=== PATIENT | male | born 1955 | race Caucasian/White ===

== ENCOUNTER → 2016-10-31 | Outpatient (CLI) | payer BC ==
[~2016-10-31] VITALS: Ht 177.8 cm; Wt 120.4 kg
[~2016-10-31] MED LIST: ALTACE10 M1 PO; AMARYL1 MG PO; AMLODIPINE BESYL5 MG PO; AMOXICILLIN/POTASSIU PO; ASPIRIN325; ASPIRIN325 PO; AUGMENTIN 875875 M1 PO; BENADRYL ALLERG25 MG PO; BYDUREON2 MG SQ; CEFTIN 250 MG250 MG PO; CLEOCIN HCL150 MG PO; COMBIVENT INH; CRESTOR10 MG PO; CRESTOR5 MG PO; DEEP SEA NASAL44 M1 NS; DUONEB 2.5-0.5 M3 ML IH; FAMOTIDINE20 MG PO; FARXIGA5 MG PO; FISH OIL + D31 EACH; FISH OIL 1,0001 EAC5 PO; FUROSEMIDE 40 M40 MG PO; GLIPIZIDE5 MG PO; GLUCOPHAGE1000 MG PO; GLUCOPHAGE500 MG PO; HYDROCODON-ACE1 EAC1 PO; HYDROCODON-ACE1 EAC5 PO; HYDROCODON-ACE1 EAC7 PO; HYDROCODON-ACE1 EAC8 PO; HYDROCODONE-AP1 EAC6 PO; IBUPROFEN 200200 M1 PO; JANUMET 50-1,01 EACH PO; JANUMET XR 1001 EACH PO; K-DUR 20 MEQ T20 MEQ PO; KLOR-CON 1010 MEQ PO; LASIX 20 MG TAB20 MG PO; LOPRESSOR 50 MG50 M1 PO; LOVAZA1000 MG PO; NORCO 10-325 T1 EACH PO; NORCO 5-325 TA1 EACH PO; NOVOLIN N100 UNIT/3 SQ; PLAVIX 75 MG TA75 MG; PLAVIX 75 MG TA75 MG PO; PREDNISONE 10 M10 M1 PO; PREDNISONE 20 M20 M1 PO; PREDNISONE 20 M20 MG PO; PROAIR HFA8.5 GM INH; SYMBACORT INH; SYMBICORT160 MCG/4. INH; TRAMADOL 50 MG50 MG PO; VICTOZA0.6 MG/0.1 SQ; XIGDUO XR 5 MG1 EAC1 PO
--- NOTE | ~2016-10-31 | HPC ---
[facility] [place] [place] [address] PAIN MANAGEMENT CONSULTATION Name: KEON COLIN Room #: REG [facility].#: [id number] Admission: 10/31/16 Attend Phys: Jayson Rubio MD Discharge: Date of : 57 Report #: [id number] THIS REPORT FOR: //name// CC: Ed Rubio DATE OF SERVICE: 10/31/2016 Followup visit for low back pain with radiculopathy. The patient returns to the pain clinic today and would like another epidural injection. It has been almost 7 months since his last injection. He said he would like to have gotten in earlier, but just did not. He has done very well with previous injections and there have been no complications. I also provided him with a small amount of hydrocodone 10/325. I gave him 90 tablets with 2 additional refills at his last visit in March and they were enough to carry him through today's appointment. Medications were reviewed and reconciled. He is taking Xigduo XR, Lasix, potassium, glipizide, rosuvastatin and aspirin. Hydrocodone has been out for some time. He would like to have a renewal of that medication since it helps so much when he is unable to get in to get an injection. ALLERGIES: MORPHINE. PHYSICAL EXAMINATION: GENERAL: This is a very pleasant, affable 61-year-old gentleman. PSYCHIATRIC: No evidence of depression or anxiety. VITAL SIGNS: His BMI is 38.1, his blood pressure 110/75 and heart rate 99. MUSCULOSKELETAL: He moves easily from sitting to standing position. He has marked antalgic features. Range of motion of the spine is limited in flexion and extension. Bilateral straight leg raising is noted, worse on the right, reproducing radicular symptoms. IMPRESSION: 1. Low back pain with radiculopathy. 2. Management of high-risk medication. This radiculopathy is secondary to MRI evidence of stenosis at L4-L5. RECOMMENDATIONS: 1. Support for his efforts to stay off of tobacco. He is now 9 months off and is doing well. [facility] [address] [place] [address] PAIN MANAGEMENT CONSULTATION Name: CRISTI,KEON W Room #: REG [facility].#: [id number] Admission: 10/31/16 Attend Phys: Jayson Rubio MD Discharge: Date of : 57 Report #: [id number] 2. Continue with regular activities and exercise. He continues to work at [employer] in the [place] department. 3. Epidural steroid injection under fluoroscopic guidance. 4. Renewal of medications under terms of our opioid agreement. PROCEDURE: The patient was taken to the fluoroscopic suite and placed prone. Skin prepped with ChloraPrep. Skin anesthetized over L4-L5 to the right of midline. A 20-gauge Tuohy epidural needle advanced in the epidural space with loss of resistance. No blood or CSF aspirated. A 1 mL of Omnipaque injected. Good spread of dye observed along the right side lateral recess, followed by 3 mL of 0.5% lidocaine mixed with 80 mg of triamcinolone. He tolerated the procedure well, was observed for 45 minutes and discharged. Follow up as needed. Dated prescriptions were provided. By: [id number] Jayson Rubio MD /nt
[2016-10-31 10:30] VITALS: BP 110/75
== END | disposition home or self-care (01) ==
LOC: PAIN 08-22 14:53
DX: M48.06 Spinal stenosis, lumbar region (principal); J44.9 Chronic obstructive pulmonary disease, unspecified; E11.9 Type 2 diabetes mellitus without complications; G89.29 Other chronic pain; Z87.891 Personal history of nicotine dependence

== ENCOUNTER → 2017-03-13 | Outpatient (CLI) | payer BC ==
[~2017-03-13] VITALS: Ht 177.8 cm; Wt 118.6 kg
--- NOTE | ~2017-03-13 | HPC ---
[facility] [place] [address] [place] [address] PAIN MANAGEMENT CONSULTATION Name: KEON COLIN Room #: REG [facility] Jan#: [id number] Admission: 03/13/17 Attend Phys: Jayson Rubio MD Discharge: Date of : 57 Report #: [id number] THIS REPORT FOR: //name// CC: Ed Rubio DATE OF SERVICE: 03/13/2017 Followup visit for low back pain with radiculopathy. The patient returns to pain clinic today for repeat injection. He has had epidural injections intermittently providing good relief of his radicular pain over the course of many years. He has never had more than 3-4 injections in a single year. He is a good responder based upon his meaningful improvement that lasts anywhere from 4-6 months. It has been 4 months since his last injection. Prior to that it was over 6 months. Pain is once again in his low back, radiates in a radicular fashion down into the left leg. He has also some pain on the right. Pain is consistent with his MRI findings which show at L4-L5 a moderate spinal stenosis produced by AP narrowing. We have also seen more severe changes at L3-L4. Injections at L4-L5 have shown good spread into both dermatomal distributions and we will continue to inject him at the same location. His health has otherwise been good with no significant changes since his last visit. 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 When the pain is bad at the end of the day he tends to go home, rest and he has used hydrocodone to help get him through these episodes. He uses his medication appropriately under terms of an opioid agreement and I am happy to provide it for him. His dose is moderate, maximum he has used in a single day is 3 tablets, which would equate to 30 mg of hydrocodone or 30 morphine milligram equivalents. We have reviewed the opioid crisis in the [place] and the importance of safeguarding all medications. He has no significant side effects. PHYSICAL EXAMINATION: GENERAL: This is a very pleasant, outgoing porfirio, 61 years old now. He moves easily from sitting to standing position, but walks with an antalgic gait. VITAL SIGNS: Blood pressure 110/85, heart rate is 104, respirations 20, oxygen saturation is 96%. MUSCULOSKELETAL: He has tenderness across his low back. He has bilateral positive straight leg raising, worse on the left than the right. Pain tends to follow more of an L4-L5, L5-S1 distribution. IMPRESSION: Spinal stenosis, multilevel with radiculopathy, worse on the left than the right. Bilateral findings were noted. [address] [address] PAIN MANAGEMENT CONSULTATION Name: KEON COLIN Room #: REG [facility] Jan#: [id number] Admission: 03/13/17 Attend Phys: Jayson Rubio MD Discharge: Date of : 57 Report #: [id number] RECOMMENDATIONS: Epidural steroid injection under fluoroscopic guidance. DESCRIPTION OF PROCEDURE: The patient was taken to the fluoroscopic suite, placed prone, skin prepped with ChloraPrep. Skin anesthetized over the L4-L5 interspace. A 20-gauge Tuohy epidural needle advanced first attempt to the epidural space, left of midline. No blood or CSF was aspirated. 1 mL of Omnipaque injected. Good spread of dye observed in the epidural space followed by 3 mL of 0.5% lidocaine mixed with 80 mg of triamcinolone. He tolerated the procedure well and was observed for 45 minutes and discharged. Followup visit as needed. By: 1141 Jayson Rubio MD /nt
[2017-03-13 10:44] VITALS: BP 110/85
== END | disposition home or self-care (01) ==
LOC: PAIN 06:58
DX: M48.06 Spinal stenosis, lumbar region (principal); M54.16 Radiculopathy, lumbar region; G89.29 Other chronic pain; E11.9 Type 2 diabetes mellitus without complications; J44.9 Chronic obstructive pulmonary disease, unspecified; Z87.891 Personal history of nicotine dependence; Z88.8 Allergy status to other drugs, medicaments and biological substances; Z98.890 Other specified postprocedural states; Z79.82 Long term (current) use of aspirin; Z79.899 Other long term (current) drug therapy

== ENCOUNTER → 2017-08-14 | Outpatient (CLI) | payer BC ==
[~2017-08-14] VITALS: Ht 177.8 cm; Wt 122.0 kg
[~2017-08-14] MED LIST changes: +BREO ELLIPTA 21 EACH INH; +FARXIGA10 MG PO
--- NOTE | ~2017-08-14 | HPC ---
[facility] [place] [address] PAIN MANAGEMENT CONSULTATION Name: KEON COLIN [id number] Admission: 08/14/17 Attend Phys: Jayson Rubio MD Discharge: Date of : 57 Report #: [id number] THIS REPORT FOR: //name// CC: Ed Rubio DATE OF SERVICE: 08/14/2017 Followup visit for lumbar radiculopathy. This is a repeat visit for the patient who comes in about twice a year for lumbar epidural injection. He is a hard working porfirio. 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 Even in the winter, he has lots of things that he is doing manually. This aggravates his back and he has chronic pain which is radiating into his legs. He has 2 particular levels of involvement, particularly L3-L4, L4-L5 and I have been giving him injections at L4-L5 with good response. He is here today with a pain score of 9/10 that has been sustained over the last month or so and he is hopeful for another epidural injection. MEDICATIONS: Metformin, fluticasone, hydrocodone which he takes infrequently, but when the pain is severe, will kick up to about 2-3 tablets a day to help him get through his work, Lasix, potassium, glipizide, Crestor and aspirin. He is on an opioid agreement. He understands the importance of safeguarding all medications. He understands that there is an opioid crisis in [place] and he knows that we are working from a CDC guideline. His morphine milligram equivalency dose at maximum is 30 MME per day. On many days after his injections, he does not use any hydrocodone whatsoever. His functional assessment tool shows 60/70 which is pretty high. We hope that after his injection that those numbers will drop. He usually gets about 95% of pain relief for up to 3 months that is an excellent response. It entails off after that. PHYSICAL EXAMINATION: He is obese with a blood pressure of 130/87, heart rate 107 and BMI of 38.7. He has his right wrist wrapped today due to carpal tunnel. He is able to move from sitting to standing position, walks without antalgic features. He has pain across his low back, limited range of motion of the lumbar spine in flexion, extension and rotation. Positive straight leg raising bilaterally, worse on the left. IMPRESSION: Chronic low back pain secondary to spinal stenosis at L3-L4, L4-L5. PROCEDURE: Epidural steroid injection L4-L5 under fluoroscopic guidance. He was taken to fluoroscopic suite for treatment, placed prone, [place] [address] PAIN MANAGEMENT CONSULTATION Name: KEON COLIN Room #: REG [facility] Montoya#: [id number] Admission: 08/14/17 Attend Phys: Jayson Rubio MD Discharge: Date of : 57 Report #: [id number] with ChloraPrep. Skin anesthetized over the L4-L5 and a 20-gauge Tuohy epidural needle advanced on the first attempt in the epidural space with loss of resistance technique. There was no blood or CSF aspirated. 1 mL of Omnipaque injected. Good dye spread was seen. It was then followed by 3 mL of 1% lidocaine mixed with 80 mg of triamcinolone. He tolerated the procedure well and was observed for 45 minutes and discharged. Follow up as needed. <ELECTRONICALLY SIGNED> By: Jayson Rubio MD 09/17/17 [id number] Jayson Rubio MD /nt
[2017-08-14 12:52] VITALS: BP 130/87
== END | disposition home or self-care (01) ==
LOC: PAIN 06:55
DX: M48.061 Spinal stenosis, lumbar region without neurogenic claudication (principal); M54.16 Radiculopathy, lumbar region; G89.29 Other chronic pain; E11.9 Type 2 diabetes mellitus without complications; J44.9 Chronic obstructive pulmonary disease, unspecified; E66.09 Other obesity due to excess calories; Z68.38 Body mass index [BMI] 38.0-38.9, adult; Z79.891 Long term (current) use of opiate analgesic; Z79.899 Other long term (current) drug therapy; Z79.82 Long term (current) use of aspirin; Z87.891 Personal history of nicotine dependence; Z98.890 Other specified postprocedural states; Z87.09 Personal history of other diseases of the respiratory system; Z88.6 Allergy status to analgesic agent

== ENCOUNTER → 2018-03-09 | Outpatient (CLI) | payer BC ==
[~2018-03-09] VITALS: Ht 177.8 cm; Wt 118.1 kg
--- NOTE | ~2018-03-09 | HPC ---
[facility] [place] [address] PAIN MANAGEMENT CONSULTATION Name: KEON COLIN [facility] [id number] Admission: 03/09/18 Attend Phys: Jayson Rubio MD Discharge: Date of : 57 Report #: [id number] THIS REPORT FOR: //name// CC: Ed Rubio DATE OF SERVICE: 03/09/2018 Followup visit for chronic low back pain with radiculopathy, recurrent. The patient is here to the pain clinic today for an epidural injection. He has been a long-standing patient of our clinic and an excellent responder to epidural injections, meeting criteria for meaningful improvement with a good long duration of response. His last epidural injection was in July. I also provided him with medication under the CDC guideline. He uses a low dose of hydrocodone. He is prescribed hydrocodone 10/325 and uses no more than one to two tablets per day. I have been giving him prescriptions for 90 tablets, but we will reduce that to 60 today. His calculated MME by his described use today is about 10-20 depending on his pain. Pain is returning now. It is in his back, radiates into both legs. It follows a dermatomal distribution of L3-L4. He has been receiving injections without issue. He has spinal stenosis at L3-L4 and L4-L5. I reviewed the CDC guidelines with him today and his opioid agreement. He is at low risk for addiction and has completed an opioid agreement. PHYSICAL EXAMINATION: GENERAL: This is a pleasant, outgoing gentleman. VITAL SIGNS: He is 5 feet 10 inches, 260 pounds. BMI is 37.4. His blood pressure is 111/69 and heart rate 86. MUSCULOSKELETAL: He is able to move independently from sit to stand, does not use a cane and is not a fall risk. He has some antalgic features to his gait. He has positive straight leg raising noted bilaterally. Pain, as before, is more severe on the left than the right. IMPRESSION: Chronic low back pain secondary to spinal stenosis, L3-L4 and L4-L5. RECOMMENDATIONS: Epidural steroid injection under fluoroscopic guidance. PROCEDURE: He was taken to fluoroscopic suite and placed prone. Skin prepped with ChloraPrep. Skin anesthetized today under L3-L4. A 20-gauge Tuohy epidural needle advanced first attempt in the epidural space with loss of resistance. There was no blood or CSF aspirated. One mL of Omnipaque injected. [address] [address] PAIN MANAGEMENT CONSULTATION Name: KEON COLIN [facility] #: [facility] [id number] Admission: 03/09/18 Attend Phys: Jayson Rubio MD Discharge: Date of : 57 Report #: [id number] Good spread of dye observed in the epidural space, followed by 3 mL of 0.5% lidocaine mixed with 80 mg of triamcinolone. He tolerated the procedure well, was observed for 45 minutes and discharged. Follow up as needed. By: [id number] Jayson Rubio MD /nt
[2018-03-09 10:33] VITALS: BP 111/69
== END | disposition home or self-care (01) ==
LOC: PAIN 06:58
DX: M54.16 Radiculopathy, lumbar region (principal); M48.061 Spinal stenosis, lumbar region without neurogenic claudication; G89.29 Other chronic pain; E11.9 Type 2 diabetes mellitus without complications; J44.9 Chronic obstructive pulmonary disease, unspecified; Z88.8 Allergy status to other drugs, medicaments and biological substances; Z79.891 Long term (current) use of opiate analgesic; Z87.891 Personal history of nicotine dependence; Z79.82 Long term (current) use of aspirin

== ENCOUNTER → 2018-08-13 | Outpatient (CLI) | payer BC ==
[~2018-08-13] VITALS: Ht 177.8 cm; Wt 121.5 kg
--- NOTE | ~2018-08-13 | HPC ---
[facility] [address] [place] [address] PAIN MANAGEMENT CONSULTATION Name: KEON COLIN [facility] #: [facility] [id number] Admission: 08/13/18 Attend Phys: Jayson Rubio MD Discharge: Date of : 57 Report #: [id number] THIS REPORT FOR: //name// CC: Ed Rubio DATE OF SERVICE: 08/13/2018 Followup visit for chronic low back pain with radiculopathy secondary to spinal stenosis. Bilateral lower extremity discomfort with broad dermatomal distribution and management of high risk medication. The patient has been a longstanding patient of the clinic dating back nearly 10 years. He has been receiving intermittent epidural injections no more than 2-3 injections per year with excellent relief. The injections tend to provide dramatic improvement, and the duration of responses vary favorable ranging 2-4 months before the pain begins to return in earnest. He is here today for another injection. I will also renew hydrocodone for him, which he uses cautiously and only at that time when the block seems to have worn off and his pain begins to return. He has had no unexpected calls or prescription requests, and his [employer] prescription drug monitoring shows that his medications prescribed only by her clinic. He is on an opioid agreement, reviewed the terms of that agreement, the importance of safeguarding all medications for chronic pain. PHYSICAL EXAMINATION: GENERAL: He is a pleasant gentleman, outgoing, easy to speak with. VITAL SIGNS: He is 5 feet 10 inches, 267 pounds, slightly up with a BMI of 38.4. Blood pressure 126/94, heart rate is 90, respirations 20. His pain intensity is 9/10. MUSCULOSKELETAL: He has pain with antalgic gait. He has bilateral straight leg raising discomfort. He has tenderness across the lumbosacral spine. Most recent MRI is dated 2008. There is likely significant progress, particularly given that the challenges that we found today entering the L4-L5 interspace. At that time, he had spinal stenosis at a level of 7.5 in the AP diameter. He had significant narrowing also with 6.2 mm in narrowing at the L3-L4. I have consistently injected him at the 4-5 level and that is where we will proceed today. IMPRESSION: Low back pain with radiculopathy secondary to multilevel spinal stenosis. PROCEDURE: Epidural steroid injection under fluoroscopic guidance. He was taken to fluoroscopic suite, placed prone, skin prepped with ChloraPrep. [address] [address] PAIN MANAGEMENT CONSULTATION Name: KEON COLIN Room #: REG Juan[facility] Montoya#: [id number] Admission: 08/13/18 Attend Phys: Jayson Rubio MD Discharge: Date of : 57 Report #: [id number] Skin anesthetized at the L4-L5 interspace. I placed a needle into the epidural space after attempts at both the right and left paramedian approach. I eventually was able to find good loss of resistance at L4-L5. There was initially some blood aspirated. The needle was slightly repositioned and rotated. I injected some saline to the needle, and there was no longer blood aspirated. I then injected Omnipaque, and spread of dye was seen nicely through the epidural space extending cephalad both in the anterior and posterior epidural space, was followed by 3 mL of 0.5% lidocaine mixed with 80 mg of triamcinolone. He tolerated the procedure well. Pain score reduced from 9/10 to 0/10 at recovery room at discharge. Medications renewed under terms of our opioid agreement, hydrocodone 10/325, #60 tablets with a refill prescription for 4 and 8 weeks. I will see him back when necessary. We do not perform series of injections in this setting and certainly will continue to use fewest number of injections possible to provide substantial relief. I did have a bit of trouble identifying his epidural space today due to osteophytes seen in placement of the needle. If finding diminishing returns on his injections, I would certainly consider repeating his MRI in the future since it has been nearly 10 years since his last x-ray. By: 1157 1244 Jayson Rubio MD /nt
[2018-08-13 08:52] VITALS: BP 126/94
--- NOTE | 2018-08-13 09:04 | NUR ---
Pain Clinic Assessment: 1. History of Osteoarthritis: Not Applicable History of Rheumatoid Arthritis: Not Applicable 2. Height: 5 ft. 10 in. 177.8 cm. Weight: 267.8 lb. oz. 121.474 kg. Patient's BMI: 38.4 3. Vital Signs: BP: 126/94 Pulse: 90 Resp: 20 Temp: 02 Sat: 96 ECG Mon: 4. Pain Intensity: 9 5. Fall Risk: Dizziness: N Needs help standing or walking: N Fallen in the last 3 months: Y Fall risk comments: 6. Patient on Blood Thinner: None 7. History of Hypertension: Y 8. Opioid Therapy greater than 6 weeks: Y Opiate Contract Signed: 03/27/16 9. Risk Assessment Tool Provided: LOW RISK 10. Functional Assessment Tool: 60 11. Recreational Drug Use: Never Drug Type: Tobacco Use: Former Smoker Tobacco Type: Amount or Packs/day: How Many Years: Alcohol Use: Yes Frequency: Monthly Quant: 3X MONTH
== END | disposition home or self-care (01) ==
LOC: PAIN 07:06
DX: M48.061 Spinal stenosis, lumbar region without neurogenic claudication (principal); M54.16 Radiculopathy, lumbar region; G89.29 Other chronic pain; J44.9 Chronic obstructive pulmonary disease, unspecified; Z79.899 Other long term (current) drug therapy; Z79.891 Long term (current) use of opiate analgesic; Z87.891 Personal history of nicotine dependence; Z98.890 Other specified postprocedural states; Z79.82 Long term (current) use of aspirin

== ENCOUNTER → 2018-12-21 | Outpatient (CLI) | payer BC, OTHER ==
[~2018-12-21] VITALS: Ht 177.8 cm; Wt 120.4 kg
--- NOTE | ~2018-12-21 | HPC ---
[facility] [place] [address] PAIN MANAGEMENT CONSULTATION Name: KEON COLIN Room #: REG [facility].#: [id number] Admission: 12/21/18 ������������������ Attend Phys: Jayson Rubio MD Discharge: ������������������ Date of : 57 Report #: [id number] THIS REPORT FOR: //name// CC: SHAWN Rubio DATE OF SERVICE: 12/21/2018 Followup visit for chronic low back pain with radiculopathy and spinal stenosis. The patient was last seen in July for an epidural injection and is here today hoping for same. Record will reflect that he has received 2-3 epidural injections per year over the course of the last many years. He became a patient of mine nearly 10 years ago. This has done a nice job of keeping away from the surgeons and out of the operating room and he has been able to manage well with good pain relief lasting months at a time. Pain is now returning. I have also provided with medication under terms of written opioid agreement. He uses hydrocodone 10/325 sparingly oftentimes reducing and almost completely following his injection until the pain begins to return. He does not exceed 2 tablets a day for a maximum MME of 20. He carefully safeguards his medications. He is grateful for the medication when needed prior to receiving subsequent injections. I have agreed to renew his medications for him today. Checked his prescription drug monitoring program, there are no unexpected entries. PHYSICAL EXAMINATION: GENERAL: He is pleasant, alert gentleman. VITAL SIGNS: Blood pressure 104/71, heart rate is 101. MUSCULOSKELETAL: Moves from sitting to standing position. His gait is antalgic. He has limited range of motion of the lumbar spine. Tenderness across the low back is present in the lumbosacral segment. Positive straight leg raising present bilaterally, worse today a little bit on the left. Sensation is slightly diminished with complaints of tingling and numbness in the lower extremities. Deep tendon reflexes are absent bilaterally. IMPRESSION: Low back pain with radiculopathy secondary to multilevel spinal stenosis. RECOMMENDATION: Epidural steroid injection under fluoroscopic guidance. PROCEDURE: He was taken to fluoroscopic suite, placed prone, skin prepped with ChloraPrep. Skin anesthetized over the L4-L5 interspace. A 20-gauge Tuohy epidural needle advanced first attempt in the midline. No blood or CSF was aspirated. Omnipaque 1 mL was injected. Good spread of dye observed in the epidural space followed by 3 mL of 0.5% lidocaine mixed with 80 mg of [address] [address] PAIN MANAGEMENT CONSULTATION Name: KEON COLIN Room #: [facility]#: [id number] Admission: 12/21/18 ������������������ Attend Phys: Jayson Rubio MD Discharge: ������������������ Date of : 57 Report #: [id number] triamcinolone. He tolerated the procedure well and was observed for 45 minutes and discharged. Followup visit planned in the pain clinic on an as needed basis in the future. ��������������������������������������������� ���������������������������������������� By: ��������������������������������������������� [id number] aJyson Rubio MD /dharmesh
[2018-12-21 11:09] VITALS: BP 104/71
--- NOTE | 2018-12-21 11:33 | NUR ---
Pain Clinic Assessment: 1. History of Osteoarthritis: Not Applicable History of Rheumatoid Arthritis: Not Applicable 2. Height: 5 ft. 10 in. 177.8 cm. Weight: 265.4 lb. oz. 120.385 kg. Patient's BMI: 38.1 3. Vital Signs: BP: 104/71 Pulse: 101 Resp: 16 Temp: 02 Sat: 95 ECG Mon: 4. Pain Intensity: 8 5. Fall Risk: Dizziness: N Needs help standing or walking: N Fallen in the last 3 months: Y Fall risk comments: 6. Patient on Blood Thinner: None 7. History of Hypertension: Y 8. Opioid Therapy greater than 6 weeks: Y Opiate Contract Signed: 03/27/16 9. Risk Assessment Tool Provided: LOW RISK 10. Functional Assessment Tool: 60 11. Recreational Drug Use: Never Drug Type: Tobacco Use: Former Smoker Tobacco Type: Amount or Packs/day: How Many Years: Alcohol Use: Yes Frequency: Monthly Quant: 1-2
== END | disposition home or self-care (01) ==
LOC: PAIN 06:45
DX: M54.16 Radiculopathy, lumbar region (principal); M48.061 Spinal stenosis, lumbar region without neurogenic claudication; J44.9 Chronic obstructive pulmonary disease, unspecified; Z87.891 Personal history of nicotine dependence; Z88.8 Allergy status to other drugs, medicaments and biological substances; Z79.82 Long term (current) use of aspirin; Z79.899 Other long term (current) drug therapy

== ENCOUNTER 2019-01-12 10:31 | Inpatient (IN) | payer BC, OTHER ==
[~2019-01-12] VITALS: Ht 177.8 cm; Wt 125.1 kg
[2019-01-12 10:32] VITALS: BP 137/97
[2019-01-12 10:53] LABS: ABSOLUTE NEUTROPHILS 5.1 thou/uL (1.4-8.2); BASOPHILS 2.1 % (0.0-2.0); HEMATOCRIT 51.2 % (42.0-52.0); HEMOGLOBIN 17.1 gm/dL (14.0-18.0); MCH 31.8 pg (26.0-34.0); MCHC 33.4 g/dL (28.0-37.0); MCV 95.4 fL (80.0-100.0); MONOCYTES 9.2 % (1.0-8.0); PLATELET COUNT 180 thou/uL (150-400); POLYS 62.7 % (36.0-66.0); RBC 5.37 mil/uL (4.50-6.00); WBC 8.1 thou/uL (4.0-11.0)
[2019-01-12 11:03] LABS: ANION GAP 8 mmol/L (7-16); BUN 16 mg/dL (7-18); CALCIUM 9.1 mg/dL (8.5-10.1); CHLORIDE 101 mmol/L (98-107); CO2 31 mmol/L (21-32); CREATININE 0.9 mg/dL (0.7-1.3); GLUCOSE 254 mg/dL (74-106); POTASSIUM 3.9 mmol/L (3.5-5.1); SODIUM 140 mmol/L (136-145)
[2019-01-12 11:13] LABS: MAGNESIUM 2.3 mg/dL (1.8-2.4); TROPONIN-I <0.06 ng/mL (<0.06)
--- NOTE | 2019-01-12 12:15 | NUR ---
pt. to be admitted per dr. fritz
[2019-01-12 13:15] VITALS: BP 126/80
[2019-01-12 13:56] LABS: CHOLESTEROL 148 mg/dL (<200); HDL CHOLESTEROL 32 mg/dL (>40); LDL CHOLESTEROL 63 mg/dL (<100); TC:HDL 4.6 Ratio (Not establshd); TRIGLYCERIDE 265 mg/dL (<150); VLDL 53 mg/dL (<40)
--- NOTE | 2019-01-12 15:23 | 2DMMODE ---
[facility] [place] [address] 2 D/M-MODE ECHOCARDIOGRAM Name: KEON COLIN Bruce Room #: 350-P [facility] IN ..#: [id number] ������������� Admission: 01/12/19 ������������� Attend Phys: Jovan Somers MD Discharge: ��� ������������� ��� Date of : 57 Date of Service: 01/12/19 1523 �� Report #: [id number] �������� ��������������������������������������������[id number] THIS REPORT FOR: //name// APPROVED REPORT Study performed: 01/12/2019 13:33:04 EXAM: Comprehensive 2D, Doppler, and color-flow Echocardiogram Patient Location: ER Status: routine BSA: 2.35 HR: 85 bpm BP: 145/101 mmHg Rhythm: NSR Other Information Study Quality: Adequate Indications COPD Diabetes CAD Syncope Hypertension/HDD 2D Dimensions IVSd: 10.19 (7-11mm) LVOT Diam: 23.09 (18-24mm) LVDd: 46.46 mm PWd: 10.28 (7-11mm) Ascending Ao: 36.86 (22-36mm) LVDs: 33.42 (25-40mm) Aortic Root: 36.47 mm Volumes Left Atrial Volume (Systole) Single Plane 4CH: 54.66 mL Single Plane 2CH: 47.69 mL LA ESV Index: 25.00 mL/m2 Aortic Valve AoV Peak Jossue.: 1.48 m/s AO Peak Gr.: 8.77 mmHg LVOT Max P.98 mmHg LVOT Max V: 1.12 m/s OSKAR Vmax: 3.15 cm2 Mitral Valve [facility] [address] [place] [address] 2 D/M-MODE ECHOCARDIOGRAM Name: KEON COLIN Bruce Room #: 350-P [facility] IN [place]#: [id number] ������������� Admission: 01/12/19 ������������� Attend Phys: Jovan Somers MD Discharge: ��� ������������� ��� Date of : 57 Date of Service: 01/12/19 1523 �� Report #: [id number] �������� ��������������������������������������������[id number] E/A Ratio: 1.1 MV Decel. Time: 220.52 ms MV E Max Jossue.: 0.81 m/s MV A Jossue.: 0.77 m/s MV PHT: 63.95 ms IVRT: 64.59 ms Pulmonary Valve PV Peak Jossue.: 1.07 m/s PV Peak Gr.: 4.63 mmHg Pulmonary Vein P Vein S: 0.41 m/s P Vein A: 0.23 m/s P Vein D: 0.33 m/s P Vein A Dur.: 87.7 msec P Vein S/D Ratio: 1.24 Tricuspid Valve TR Peak Jossue.: 2.37 m/s TR Peak Gr.: 22.47 mmHg PA Pressure: 22.00 mmHg Left Ventricle The left ventricle is normal size. There is normal left ventricular wall thickness. The left ventricular systolic function is normal. The left ventricular ejection fraction is within the normal range. LVEF is 55-60%. Right Ventricle The right ventricle is normal size. The right ventricular systolic function is normal. Atria The left atrium size is normal. The right atrium size is normal. Aortic Valve The aortic valve is normal in structure. No aortic regurgitation is present. There is no aortic valvular stenosis. Mitral Valve The mitral valve is normal in structure. There is no mitral valve regurgitation noted. No evidence of mitral valve stenosis. Tricuspid Valve The tricuspid valve is normal in structure. There is trace tricuspid regurgitation. Estimated PAP 22 mmHg plus the right atrial pressure. There is no pulmonary hypertension. [facility] [address] [place] [address] 2 D/M-MODE ECHOCARDIOGRAM Name: KEON COLIN Room #: 350-P [facility] IN .R.#: [id number] ������������� Admission: 01/12/19 ������������� Attend Phys: Jovan Somers MD Discharge: ��� ������������� ��� Date of : 57 Date of Service: 01/12/19 1523 �� Report #: [id number] �������� ��������������������������������������������[id number] Pulmonic Valve The pulmonary valve is normal in structure. There is no pulmonic valvular regurgitation. Great Vessels The aortic root is normal in size. IVC is not well visualized. Pericardium There is no pericardial effusion. <Conclusion> The left ventricle is normal size. LVEF is 55-60%. The right ventricle is normal size. The left atrium size is normal. The aortic valve is normal in structure. There is no mitral valve regurgitation noted. There is trace tricuspid regurgitation. Estimated PAP 22 mmHg plus the right atrial pressure. There is no pulmonary hypertension. The aortic root is normal in size. There is no pericardial effusion. ��������������������������������������������� <ELECTRONICALLY SIGNED> ���������������������������������������� By: Ozzy Holcomb MD, FACC ��������������������������������������������� 01/12/19 1523 1523 1523 Ozzy Holcomb MD, FACC /INF
--- NOTE | 2019-01-12 15:58 | NUR ---
ASSUMED CARE AT 1400, SHIFT ASSESSMENT DONE, MEDS GIVEN, VSS. ADMISISON DONE, HOME MED REC DONE. WILL BE NPO FORM MIDNIGHT, GOING FOR A CARDIAC CATH. WILL CONTINUE TO ASSESS AND ASSIST WITH ADLs NEEDED.
[2019-01-12 18:09] VITALS: BP 125/81
[2019-01-12 19:00] VITALS: BP 128/89
--- NOTE | 2019-01-13 03:52 | NUR ---
Patient is progressing in his care plan. Vital signs stable with patient having no complaints of pain or nausea. Fully oriented, patient was able to participate in his care and call appropriately for needs. Patient had no problems breathing on low level oxygen as evidenced by spot oxygenation checks. He was kept NPO from 0200 in preparation of todays procedure. Up multiple times to bathroom with assistance incident free, patient is considered a high fall risk and appears weak and unsteady on feet. Continue plan of care.
[2019-01-13 04:02] VITALS: BP 105/77
[2019-01-13 07:10] VITALS: BP 126/85
--- NOTE | 2019-01-13 07:20 | NUR ---
PT PICKED UP AND TAKEN TO [facility] AT 0709.
--- NOTE | 2019-01-13 08:00 | EKG ---
[address] [address] ELECTROCARDIOGRAM REPORT Name: KEON COLIN Room #: 350-P ADM IN M.R.#: [id number] ������������������ Admission: 01/12/19 ������������������ Attend Phys: Jovan Somers MD Discharge: ������������������ Date of : 57 Report #: [id number] ����������������������������������������������������������������� [id number] THIS REPORT FOR: //name// [facility] ED Test Date: 2019-01-12 Test Time: 10:34:31 Pat Name: KEON COLIN Department: Room: 350 Gender: M Mid Level Business Analyst: ANGEL : 1955 Requested By: Jaspreet Block Order Number: [id number] MD: Dallin Anna Measurements Intervals [place] Rate: 98 P: 40 CA: 160 QRS: 32 QRSD: 91 T: 27 QT: 341 QTc: 436 Interpretive Statements Sinus rhythm Normal tracing Compared to ECG 03/24/2016 06:31:56 No significant changes Electronically Signed On 01-13-2019 7:59:57 CDT by Dallin Anna [email or web address] ��������������������������������������������� <ELECTRONICALLY SIGNED> ���������������������������������������� By: Dallin Anna MD, [facility] ��������������������������������������������� 01/13/19 0759 1034 1034 Dallin Anna MD, FACC /EPI
[2019-01-13 12:08] LABS: GLYCOHEMOGLOBIN (HGB A1C) 10.2 % (4.8-5.6)
[2019-01-13 13:11] LABS: APTT 27.1 Seconds (24.5-32.8); PROTIME 10.6 Seconds (9.3-11.4)
[2019-01-13 13:12] LABS: ALBUMIN 3.1 g/dL (3.4-5.0); CALCIUM 8.5 mg/dL (8.5-10.1); CREATININE 0.7 mg/dL (0.7-1.3); POTASSIUM 4.2 mmol/L (3.5-5.1); TOTAL BILIRUBIN 0.3 mg/dL (<0.1-1.0); TOTAL PROTEIN 7.1 g/dL (6.4-8.2)
--- NOTE | 2019-01-13 14:16 | NUR ---
Chart reviewed and case discussed with the care team. Medicaid Analyst visited with the pt and his at bedside. The pt is a&ox4 and is on bedrest after cardiac cath. He is having sx tomorrow rt CEA. He indicates that he is indep with gait and adl's and only uses home o2 at night time. His o2 provider is [facility]. He works fulltime for [employer] and drives. His works fulltime as well but is available to help as needed at dc. The pt wishes his and his son Ryland to be on his spokespersons list. He is interested in DPOA/AD information as he does not have one in place. Document/info provided to him and his spouse. He denies any dc needs or concerns at this time. The pt has health insurance coverage in place for f/u care. Will remain available should dc needs arise.
[2019-01-13 15:49] VITALS: BP 127/87
[2019-01-13 19:40] VITALS: BP 123/73
[2019-01-13 22:33] LABS: URINE BILIRUBIN NEGATIVE (Negative); URINE BLOOD NEGATIVE (Negative); URINE CLARITY CLEAR; URINE COLOR YELLOW; URINE GLUCOSE-RANDOM* 3+ (Negative); URINE KETONES NEGATIVE (Negative); URINE LEUKOCYTES-REFLEX NEGATIVE (Negative); URINE NITRITE-REFLEX NEGATIVE (Negative); URINE PROTEIN (DIPSTICK) NEGATIVE (Negative); URINE SPECIFIC GRAVITY <= 1.005 (1.005-1.035); URINE UROBILINOGEN 0.2 E.U./dl (0.2-1.0)
[2019-01-14] VITALS (8 sets, daily range): BP systolic 90–122; BP diastolic 50–89
--- NOTE | 2019-01-14 06:00 | NUR ---
PATIENT IS PROGRESSING IN HIS CARE PLAN. VITAL SIGNS STABLE WITH PATIENT HAVING NO COMPLAINTS OF NAUSEA. PATIENT DID COMPLAIN OF BACK PAIN EARLY THIS MORNING AND WAS TREATED EFFECTIVELY WITH MEDICATION. FULLY ORIENTED, PATIENT WAS ABLE TO PARTICIPATE IN CARE AND CALL APPROPRIATELY FOR NEEDS. BREATHING STABLE ON OXYGEN EVIDENCED BY SPOT OXYGENATION CHECKS. PATIENT HAS EXHIBITED SOA WITH ACTIVITY. PATIENT HAS BEEN KEPT NPO IN PREPARATION OF TODAYS PROCEDURE. NURSE ALSO MADE SURE TO PROVIDE PRE OP SCRUB OF PATIENT WELL SHAVE SOLIS. PATIENT HAS BEEN ABLE TO AMBULATE TO BATHROOM WITH ASSISTANCE INCIDENT FREE, BUT SHOULD STILL BE CONSIDERED A FALL RISK. PATIENT IS ANXIOUS FOR DISCHARGE BUT IS PREPARED TO FOLLOW DOCTORS ORDERS/INSTRUCTIONS TO "GET BETTER." CONTINUE PLAN OF CARE.
--- NOTE | 2019-01-14 07:30 | EKG ---
[address] [address] ELECTROCARDIOGRAM REPORT Name: KEON COLIN Room #: 350-P ADM IN M.R.#: [id number] ������������������ Admission: 01/12/19 ������������������ Attend Phys: Jovan Somers MD Discharge: ������������������ Date of : 57 Report #: [id number] ����������������������������������������������������������������� [id number] THIS REPORT FOR: //name// [facility] Test Date: 2019-01-13 Test Time: 13:15:01 Pat Name: KEON COLIN Department: Room: 350 P Gender: M Metal Work Duct Installer: ISAIAS : 1955 Requested By: Nguyen Kennedy Order Number: [id number] MD: Dallin Anna Measurements Intervals [place] Rate: 74 P: 44 [place]: 168 QRS: 30 QRSD: 87 T: 36 QT: 382 QTc: 424 Interpretive Statements Sinus rhythm Normal tracing Compared to ECG 01/12/2019 10:34:31 No significant changes Electronically Signed On 01-14-2019 7:30:36 CDT by Dallin Anna [email or web address] ��������������������������������������������� <ELECTRONICALLY SIGNED> ���������������������������������������� By: Dallin Anna MD, [facility] ��������������������������������������������� 01/14/19 0730 1315 Dallin Anna MD, FACC /EPI
--- NOTE | 2019-01-14 10:24 | NUR ---
PT TAKEN TO SURGERY AT 1000. VSS, ALERT AND ORIENTED TIMES FOUR. DENIES PAIN/SOA
--- NOTE | 2019-01-14 13:03 | NUR ---
SW reviewed chart and spoke with nursing and attending physician. Pt scheduled to have carotid endarterectomy today per CTS, then will transfer to ICU following procedure. Pt lives at home with his and has good family support. Plan is for pt to discharge home when medically stable. ALANNA is following to assist as needed with discharge planning.
--- NOTE | 2019-01-14 15:42 | HC ---
[facility] [place] [address] CONSULTATION Name: KEON COLIN Room #: 239-P ADM IN M.R.#: [id number] Admission: 01/12/19 ������������������ Attend Phys: Jovan Somers MD Discharge: ������������������ Date of : 57 Report #: [id number] THIS REPORT FOR: //name// CC: Ed Somers DATE OF SERVICE: 01/13/2019 HISTORY OF PRESENT ILLNESS: We were asked by Dr. Holcomb to see the patient. The patient is a 63-year-old admitted with a syncopal episode. The patient had carotid and coronary angiography. Coronary angio was negative, but the carotid angio showed a high-grade right internal carotid stenosis measured at 80%, has an eccentric lesion at the origin of the right internal carotid. Left carotid was basically normal. PAST MEDICAL HISTORY: Also significant for hyperlipidemia, diabetes mellitus, chronic obstructive pulmonary disease, obstructive sleep apnea, and hypertension. The patient is status post coronary artery bypass in 2000. FAMILY HISTORY: Not significant. SOCIAL HISTORY: Former smoker. The patient is . ALLERGIES: MUSHROOMS, MORPHINE, and LIPITOR. MEDICATIONS AT HOME: Crestor, aspirin, glipizide, potassium, Lasix, and metformin. REVIEW OF SYSTEMS: CONSTITUTIONAL: Negative for fever or chills. EYES: No visual change other than when the patient had the near syncopal episode. He describes having decreased vision in both eyes. HEENT: No rhinorrhea, sore throat, or headache. RESPIRATORY: No new cough, shortness of breath. CARDIAC: No palpitations. No angina. GASTROINTESTINAL: No nausea, vomiting, pain, or blood. GENITOURINARY: No burning, frequency, urgency, or blood. MUSCULOSKELETAL: No bone or joint pain. SKIN: No rash or infection. NEUROLOGIC: Negative other than the recent near syncopal episode. ENDOCRINE: No goiter, no tremor. HEMATOLOGIC AND LYMPHATIC: No easy bruisability or bleeding. PHYSICAL EXAMINATION: GENERAL: The patient is lying in bed after his angiogram. He is overweight, mesomorphic fellow. [facility] [address] [place] [address] CONSULTATION Name: KEON COLIN Room #: 239-P [facility] IN M.R.#: [id number] Admission: 01/12/19 ������������������ Attend Phys: Jovan Somers MD Discharge: ������������������ Date of : 57 Report #: [id number] VITAL SIGNS: Blood pressure 126/85, pulse 93, respiratory rate 18, temperature 36.4, and O2 sat 93 on room air. HEENT: No scleral icterus, no arcus. NECK: No mass. I do not hear a bruit. CHEST: Clear. HEART: Rhythm regular, no murmur. ABDOMEN: Soft, no mass. EXTREMITIES: No clubbing, cyanosis, edema. MUSCULOSKELETAL: No bone or joint asymmetry or deformity. NEUROLOGIC: No motor or sensory dysfunction. PSYCHIATRIC: Oriented x3, appropriate, shows insight into problem. Affect neither elevated nor depressed. I reviewed the findings of the carotid angiogram with the patient and talked about options for treatment. Risks and details of carotid surgery were discussed. Traditional carotid surgery was compared and contrasted with the C-collar approach. The patient understands all of this and he wishes to proceed. We have scheduled carotid endarterectomy for 01/14/2019. Thank you for the consult. ��������������������������������������������� <ELECTRONICALLY SIGNED> ���������������������������������������� By: Joel Valencia MD ��������������������������������������������� 01/14/19 1542 0743 0847 Joel Valencia MD /nt
--- NOTE | 2019-01-14 15:42 | O ---
[facility] [place] [address] OPERATIVE REPORT Name: KEON COLIN Room #: 239-P ADM IN M.R.#: [id number] Admission: 01/12/19 ������������������ Attend Phys: Jovan Somers MD Discharge: ������������������ Date of : 57 Report #: [id number] THIS REPORT FOR: //name// CC: Ed Somers DATE OF SERVICE: 01/14/2019 PREOPERATIVE DIAGNOSIS: Right carotid artery stenosis. POSTOPERATIVE DIAGNOSIS: Right carotid artery stenosis. OPERATION: Right carotid endarterectomy with patch closure. SURGEON: Joel Valencia M.D. MACHINE PECAN GATHERER: Sharan Garcia. ANESTHESIA: General. INDICATIONS: The patient is a 63-year-old with 80% right internal carotid stenosis that presented with near syncope. The left carotid is normal. FINDINGS AND TECHNIQUE: After general anesthesia was established, an oblique right neck incision was made. Common facial vein was divided. Common internal and external carotid arteries were identified and controlled, 10,000 units of heparin were given. Continuous electroencephalographic monitoring was performed during the operation. When the carotid vessels were occluded no EEG changes were noted. The carotid arteriotomy was made. The endarterectomy was performed without creating a distal flap. Neointima was inspected and all loose debris was removed. Tacking sutures were placed at the transition zone. When the endarterectomy was deemed satisfactory, the arteriotomy was closed with running Prolene and a thin-walled pericardial patch. Flow was established first through the external, then the internal carotid artery. 25 mg of protamine was given to reverse the heparin. When hemostasis was satisfactory, the wound was irrigated with antibiotic solution. A drain was placed and brought out through the bottom pole of the incision and the wound was closed in layers. The patient was taken to the [facility] [address] [place] [address] OPERATIVE REPORT Name: CRISTIKEON Room #: 239-P [facility] IN M.R.#: [id number] Admission: 01/12/19 ������������������ Attend Phys: Jovan Somers MD Discharge: ������������������ Date of : 57 Report #: [id number] recovery area where his neurologic progress was monitored. All counts reported as correct. ��������������������������������������������� <ELECTRONICALLY SIGNED> ���������������������������������������� By: Joel Valencia MD ��������������������������������������������� 01/14/19 1542 1420 1437 Joel Valencia MD /nt
[2019-01-14 16:48] LABS: HEMATOCRIT 47.6 % (42.0-52.0); HEMOGLOBIN 16.2 gm/dL (14.0-18.0); MCH 32.4 pg (26.0-34.0); MCV 95.3 fL (80.0-100.0); RDW 15.1 % (10.5-14.5); WBC 10.5 thou/uL (4.0-11.0)
--- NOTE | 2019-01-14 18:26 | NUR ---
PATIENT ARRIVED TO ROOM 239 IN THE ICU AT APPROX 1530 WITH RECOVERY NURSES AT BEDSIDE. PATIENT WAS AWAKE AND ALERT. PATIENT WAS PLACED ON THE MONITORS AND MADE COMFORTABLE IN THE ROOM. PATIENT DENIES PAIN RIGHT OUT OF SURGERY BUT THEN GOT A SUDDEN HEADACHE THAT HE RATED 9/10. PATIENT NEUROLOGICALLY INTACT, ABLE TO FOLLOW COMMANDS, STRENGTH IS EQUAL ON BOTH SIDE, PUPIL ARE EQUAL AND REACTIVE. PATIENT ON BIPAP AT THIS TIME WITH 100% FIO2, TOLERATING WELL. GOOD PULSES THROUGHOUT. NO OTHER CONCERNS AT THIS TIME. WILL CONTINUE TO MONITOR AND CARE PER PLAN OF CARE.
[2019-01-15] VITALS (49 sets, daily range): BP systolic 95–120; BP diastolic 59–76
--- NOTE | 2019-01-15 00:21 | NUR ---
JERRI DRESSING NOT FUNCTIONING. INFORMED DR. SYLVESTER. ORDERED TO TAKE OFF DRESSING AND REDRESS WITH STANDARD DRESSING WITH TRIPLE ANITBIOTIC OINTMENT. DRESSING CHANGE PERFROMED AT 2300. JOHN DRAIN IN PLACE.
[2019-01-15 05:47] LABS: HEMATOCRIT 46.1 % (42.0-52.0); HEMOGLOBIN 15.2 gm/dL (14.0-18.0); MCH 31.5 pg (26.0-34.0); MCV 95.6 fL (80.0-100.0); RBC 4.83 mil/uL (4.50-6.00); WBC 10.1 thou/uL (4.0-11.0)
--- NOTE | 2019-01-15 05:56 | NUR ---
pt aox4. c/o headache medicated for pain relief. vss. afebrile. dressing changed from righ CEA, c/d/i. sr on the monitor. violette ramon this am. adequate intake and output. no complains presently. will ontinue to monitor.
[2019-01-15 05:57] LABS: CREATININE 0.8 mg/dL (0.7-1.3); POTASSIUM 4.9 mmol/L (3.5-5.1)
--- NOTE | 2019-01-15 15:53 | NUR ---
SW reviewed chart and spoke with nursing and attending physician. Pt is s/p CEA. Pt remains on 6L of continuous O2. Pt is normally on 2L nocturnal O2 at home. Should pt require home O2. Will need rest/exercise oximetry ordered prior to discharge. Pt must be 88% or below at resting or with activity, in order to qualify for home O2 during the day. Face sheet, H&P and rest/exercise oximetry study will need to be faxed to [facility] for review. RT can provide pt with portable tank for transport home. Pt to contact [facility] for additional portable tanks if needed. Contact info for [facility] placed in discharge summary. SW is available to assist as needed with discharge planning. PROVIDER [facility]--
--- NOTE | 2019-01-15 18:16 | NUR ---
ASSUMED CARE 0700 01/15/19, PT ASSESSMENTS AND VSS COMPLETE PER ICU PROTOCOL, PT ALERT AND ORIENTED X 4, PT ABLE TO FOLLOW COMMANDS, PT GIVEN HYDROCODONE FOR HEADACHE DURING THIS SHIFT. PT HAD A SYNCOPAL EPISODE WITH PT TODAY, VS REMAINED STABLE DURING THIS EVENT. PT SR ON THE MONITOR, R ART LINE DC'D TODAY, BP STABLE, SCD'S IN PLACE. PT ON 6L, SATS LOW 90'S RANGING FROM 91%-93%, SHORTNESS OF AIR WITH EXERTION PRESENT. PT ON A HEART HEALTHY, LOW FAT DIET, PT HAS GOOD APETITE. PT ABLE TO USE A URINAL EFFECTIVELY. PT HAS CCU TRANSFER ORDERS. PLAN OF CARE- CONT TO MONITOR.
[2019-01-16] VITALS (19 sets, daily range): BP systolic 97–129; BP diastolic 59–85
[2019-01-16 05:20] LABS: CALCIUM 8.2 mg/dL (8.5-10.1); CREATININE 0.7 mg/dL (0.7-1.3); POTASSIUM 4.1 mmol/L (3.5-5.1)
--- NOTE | 2019-01-16 05:52 | NUR ---
AOX4. ON 6L NC. USES IS WHILE AWAKE. NO RESP DISTRESS WHILE IN BED. C/O PAIN, MEDICATED FOR PAIN RELIEVE. JERRI DRESSING IN PLACE ON RIGHT NECK. FUNCTIONING APPROPIATELY. VSS. AFEBRILE. NO COMPLAINS CURRENTLY WILL CONTINUE TO MONITOR.
--- NOTE | 2019-01-16 12:06 | CATHLAB ---
[facility] [address] [place] [address] INVASIVE PROCEDURE REPORT Name: KEON COLIN Room #: 244-P [facility] IN [facility].#: [id number] ������������� Admission: 01/12/19 ������������� Attend Phys: Jovan Somers MD Discharge: ��� ������������� ��� Date of : 57 Date of Service: 01/16/19 1205 �� Report #: [id number] �������� ��������������������������������������������[id number] THIS REPORT FOR: //name// APPROVED REPORT Study performed: 01/13/2019 07:11:21 Patient Details Patient Status: In-Patient Room #: The patient is a 63 year-old male Event Personnel Ozzy Holcomb Lamp Assembler, Jose Marie RN RN, Fili Melgar RTR Eric Mcdonald Roberta Monitor Procedures Performed Art Access - R femoral artery* Left Heart Cath Coronaries, Bypass Grafts [id number] CCORCA Abdominal Aortography [id number] 14227 Initial Mod Sed Same Phys/QHP Gr 794878 03035 Mod Sed Same Phys/QHP Ea [id number] Indication Chest pain Procedure Narrative The Right Groin^ was infiltrated with 1% Lidocaine subcutaneous anesthesia. A PINNACLE 6FR Sheath #[id number] sheath was inserted into the . Coronary angiography was performed using coronary diagnostic catheters. The right coronary system was accessed and visualized with a JR4 catheter. The left coronary system was accessed and visualized with a JL4 catheter. The left ventricle was accessed and visualized with a ST.PIG catheter. Left ventricular/Aortic Valve gradient assessed . Left ventriculogram was performed in 30 degree projection. An aortogram of the abdominal aorta was performed. Hemostasis was obtained with manual pressure following sheath removal without any complications. Patient had 2 bypass grafts goins to LAD. Judith to PDA. Sheath was pulled in holding by camera repair technician. Intraoperative Conscious Sedation Sedation start time: 738 Case end Time: 818 Fentanyl 50 mcg Versed 1.5 mg Fluoro Time: 20.78 minutes Dose: DAP 99441.10 cGycm2 2433 mGy [facility] [address] [place] [address] INVASIVE PROCEDURE REPORT Name: KEON COLIN Bruce Room #: 244-P [facility] IN [facility].#: [id number] ������������� Admission: 01/12/19 ������������� Attend Phys: Jovan Somers MD Discharge: ��� ������������� ��� Date of : 57 Date of Service: 01/16/19 1205 �� Report #: [id number] �������� ��������������������������������������������[id number] Contrast Type and Amount: Omnipaque 130 ml Hemodynamics The aortic pressure is 159/97 mmHg with a mean of 119 mmHg. The left ventricular pressure is 136/12 mmHg with a mean of mmHg. The left ventricular end diastolic pressure is 30 mmHg. Conclusion #1 left main mildly disease giving rise to LAD and circumflex #2 the LAD occludes proximally. It is filled via a GOINS graft briskly. There was a proximal LAD stent the LAD occludes distal to that stent #4's a ramus branch has moderate disease 3040% ostial and proximal 40-50% moderate distribution #5 a codominant circumflex otherwise has mild disease partial filling of the inferior lateral wall via this system #6 codominant RCA is occluded proximally #7 intact JUDITH graft briskly fills the PDA. (Technically difficult to cannulate a utilize multiple catheters final was a radiologic catheter for engagement) #8 GOINS to LAD briskly fills the GOINS is diffusely diseased to the apex. #9 normal left ventricular size systolic function lower limits of normal EF 50-55% #10 abdominal aorta is mildly tortuous no significant aneurysm exists renal arteries appear patent. Recommendations and plan: Continue aggressive risk factor modification. Patient has been lost to follow. Syncopal event we'll proceed with carotid angiography by Dr. Mendosa see his dictation. Doppler evidence of high grade right ICA. ��������������������������������������������� <ELECTRONICALLY SIGNED> ���������������������������������������� By: Ozzy Holcomb MD, FACC ��������������������������������������������� 01/16/19 1205 120 04 Ozzy Holcomb MD, FACC /INF
--- NOTE | 2019-01-16 14:55 | NUR ---
DR. GARRISON NOTIFIED OF PT'S PROGRESS WITH AMBULATION IN SINGH AND 02 DOWN TO 2L/NC.
--- NOTE | 2019-01-16 14:56 | NUR ---
REQUESTED DISCHARGE ORDERS FROM DR. GARRISON, SINCE DR. JIMENEZ AND DR. GUSTAFSON BOTH PLAN FOR DISCHARGE TODAY BASED ON PT'S PROGRESS. LASIX IV GIVEN PER DR. GUSTAFSON'S ORDER WITH A POSITIVE URINE RESPONSE. PT AMBULATED, WELL TOLERATED. PULLING 1,OOOCC ON INCENTIVE SPIROMETER, PROGRESSIVELY TITRATED DOWN TO 2L/NC, NOW DOWN TO 1L/NC. SR, TOLERATING PO. AT BEDSIDE PROVIDING SUPPORT. PT PROGRESSING.
[2019-01-16] MEDS ORDERED: ASPIR 8181 MG PO (15:06)
--- NOTE | 2019-01-16 16:40 | NUR ---
DR. JIMENEZ AND DR. GUSTAFSON PAGED TO UPDATE ON PT PROGRESS. DR. JIMENEZ PROMPTLY RETURNED CALL. HE IS AWARE, PT IS ON ROOM AIR WITH SAO2 90-92% WITH RESP EVEN AND UNLABORED, USING INCENTIVE SPIROMETER-1,000.
[2019-01-16] MEDS ORDERED: POTASSIUM20 PO (17:32)
[2019-01-16] MEDS ORDERED: LASIX 40 MG TAB40 M2 PO (17:32)
--- NOTE | 2019-01-16 18:00 | NUR ---
AT 1750, DR. GUSTAFSON RETURNED PAGE. UPDATED ON PT PROGRESS, ROOM AIR, RESP EVEN AND UNLABORED. CLARIFIED HOME MED ORDER FOR LASIX AND POTASSIUM, PER DR. GARRISON'S REQUEST. PT PREPARING FOR DISCHARGE.
--- NOTE | 2019-01-16 19:10 | NUR ---
PT RECEIVED THE BOTTLE OF HIS HOME CHOLESTEROL MEDICATION. DISCHARGE INSTRUCTIONS GENERATED WITH HANDWRITTEN COMMENTS INCLUDED. PT AND , WERE UPDATED SEVERAL TIMES ON DISCHARGE PROGRESS. VERBALIZED UNDERSTANDING OF DISCHARGE INSTRUCTIONS. TRANSPORTED BY WHEELCHAIR, TO CAR IN STABLE CONDITION WITH DRIVING HOME.
--- NOTE | 2019-01-18 17:06 | PATH ---
[facility] [address] [place] [address] PATHOLOGY RPT PROCEDURE Name: SEMAJ COLIN Room #: 244-P [facility] M.R.#: [id number] ������������������ Admission: 01/12/19 ������������������ Date of : 57 Discharge: 01/16/19 Report #: [id number] Path Case #: [id number] [facility] Accession Number: [id number] . 01 Material submitted: . carotid body - RIGHT CAROTID PLAQUE. Modifiers: right . 01 Clinical history: . Carotid stenosis . 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 (IUV:dry color tester; 01/18/2019) MBR/01/18/2019 . 02 Electronically signed: . Marilee Meléndez MD, Pathologist NPI- [id number] . 01 Gross description: . Received in formalin labeled "Semaj Colin, right carotid plaque," is a partially disrupted, roughly tubular segment of pale yellow-khan rubbery tissue measuring 3.2 x 1.3 x 1.3 cm in greatest dimensions. The specimen interior is partially lined with granular, dark khan-brown material. Serial sectioning reveals rubbery to partially calcified cut surfaces. President Practicing Urologist sections are submitted in cassette A1, following decalcification. (DAC; 01/15/2019) XDC/XDC . 02 Pathologist provided ICD-10: I65.21 . 02 CPT . 306087, 425217 Specimen Comment: A courtesy copy of this report has been sent to Specimen Comment: [phone], , . Specimen Comment: Report sent to ,DR MONTES / DR MATHEW Performed at: [address] [id number] MD Kranthi Rodriguez MD Phone: [phone] Performed at: [address] [id number] [address] [address] PATHOLOGY RPT PROCEDURE Name: SEMAJ COLIN Room #: 244-P [facility] IN M.R.#: [id number] ������������������ Admission: 01/12/19 ������������������ Date of : 57 Discharge: 01/16/19 Report #: [id number] Path Case #: [id number] MD Marilee Meléndez MD Phone: [phone]
== END 2019-01-16 19:20 | disposition home or self-care (01) | DRG 39 ==
LOC: ER 10:31 → 3W 12:19 → EROBS 12:19 → 3W 13:24 → ICU 01-14 14:28
PROVIDERS: Emergency Medicine; Internal Medicine Cardiovascular Disease; Nurse Practitioner; Nurse Practitioner Adult Health; Physician Assistant; Surgery Vascular Surgery; ADMIT Internal Medicine
PROC: B41G1ZZ Fluoroscopy of Left Lower Extremity Arteries using Low Osmolar Contrast (ICD-10-PCS; principal; 2019-01-13)
PROC: B4181ZZ Fluoroscopy of Bilateral Renal Arteries using Low Osmolar Contrast (ICD-10-PCS; principal; 2019-01-13)
PROC: B4101ZZ Fluoroscopy of Abdominal Aorta using Low Osmolar Contrast (ICD-10-PCS; principal; 2019-01-13)
PROC: B3181ZZ Fluoroscopy of Bilateral Internal Carotid Arteries using Low Osmolar Contrast (ICD-10-PCS; principal; 2019-01-13)
PROC: B31Q1ZZ Fluoroscopy of Cervico-Cerebral Arch using Low Osmolar Contrast (ICD-10-PCS; principal; 2019-01-13)
PROC: B41F1ZZ Fluoroscopy of Right Lower Extremity Arteries using Low Osmolar Contrast (ICD-10-PCS; principal; 2019-01-13)
PROC: B31C1ZZ Fluoroscopy of Bilateral External Carotid Arteries using Low Osmolar Contrast (ICD-10-PCS; principal; 2019-01-13)
PROC: B3151ZZ Fluoroscopy of Bilateral Common Carotid Arteries using Low Osmolar Contrast (ICD-10-PCS; principal; 2019-01-13)
PROC: B31F1ZZ Fluoroscopy of Left Vertebral Artery using Low Osmolar Contrast (ICD-10-PCS; principal; 2019-01-13)
PROC: 5A09357 Assistance with Respiratory Ventilation, Less than 24 Consecutive Hours, Continuous Positive Airway Pressure (ICD-10-PCS; 2019-01-14)
PROC: 03UK07Z Supplement Right Internal Carotid Artery with Autologous Tissue Substitute, Open Approach (ICD-10-PCS; 2019-01-14)
PROC: 03CK0ZZ Extirpation of Matter from Right Internal Carotid Artery, Open Approach (ICD-10-PCS; 2019-01-14)
PROC: B2151ZZ Fluoroscopy of Left Heart using Low Osmolar Contrast (ICD-10-PCS; 2019-01-16)
PROC: 4A023N7 Measurement of Cardiac Sampling and Pressure, Left Heart, Percutaneous Approach (ICD-10-PCS; 2019-01-16)
PROC: B4101ZZ Fluoroscopy of Abdominal Aorta using Low Osmolar Contrast (ICD-10-PCS; 2019-01-16)
PROC: B2171ZZ Fluoroscopy of Right Internal Mammary Bypass Graft using Low Osmolar Contrast (ICD-10-PCS; 2019-01-16)
PROC: B2181ZZ Fluoroscopy of Left Internal Mammary Bypass Graft using Low Osmolar Contrast (ICD-10-PCS; 2019-01-16)
PROC: B2111ZZ Fluoroscopy of Multiple Coronary Arteries using Low Osmolar Contrast (ICD-10-PCS; 2019-01-16)
DX: I65.21 Occlusion and stenosis of right carotid artery (principal); I10 Essential (primary) hypertension; E78.5 Hyperlipidemia, unspecified; J44.9 Chronic obstructive pulmonary disease, unspecified; E11.9 Type 2 diabetes mellitus without complications; G47.33 Obstructive sleep apnea (adult) (pediatric); F17.210 Nicotine dependence, cigarettes, uncomplicated; E78.00 Pure hypercholesterolemia, unspecified; I25.5 Ischemic cardiomyopathy; E66.01 Morbid (severe) obesity due to excess calories; I25.119 Atherosclerotic heart disease of native coronary artery with unspecified angina pectoris; I25.2 Old myocardial infarction; Z95.1 Presence of aortocoronary bypass graft; Z99.81 Dependence on supplemental oxygen; Z79.899 Other long term (current) drug therapy; Z79.82 Long term (current) use of aspirin; Z79.84 Long term (current) use of oral hypoglycemic drugs; Z88.6 Allergy status to analgesic agent; Z91.018 Allergy to other foods; Z68.39 Body mass index [BMI] 39.0-39.9, adult; Z95.5 Presence of coronary angioplasty implant and graft; Z71.6 Tobacco abuse counseling
CPT/HCPCS: 10078; 10879; 47375; 50010; 50101; 50386; 50417; 50455; 51301; 51751; 52279; 54118; 56524; 56526; 56528; 56531; 56534; 57254; 62110; 62900; 70005

== ENCOUNTER → 2019-10-25 | Outpatient (CLI) | payer BC ==
[~2019-10-25] VITALS: Ht 177.8 cm; Wt 115.9 kg
[~2019-10-25] MED LIST changes: +ASPIR 8181 MG PO; +LASIX 40 MG TAB40 M2 PO; +POTASSIUM20 PO
--- NOTE | ~2019-10-25 | HPC ---
[facility] [place] [address] PAIN MANAGEMENT CONSULTATION Name: KEON COLIN Room #: REG [facility].#: [id number] Admission: 10/25/19 Attend Phys: Jayson Rubio MD Discharge: Date of : 57 Report #: [id number] THIS REPORT FOR: cc: Shawn Armendariz MD,Jayson Rai MD, MD ~ CC: SHAWN Rubio DATE OF SERVICE: 10/25/2019 Followup visit for chronic low back pain with radiculopathy secondary to spinal stenosis. The patient returns to pain clinic today wearing a mask. He is at high risk due to diabetes and COPD. He came today hoping for an epidural injection typically receiving an injection every 12 to even 15 months. His last injection was in 07/2018. Pain is in his back, radiates into his leg in a radicular distribution. I have also been providing medications for him, although he does not use a lot. Hydrocodone 10. We have discussed recent suggestions by the [place] [employer]est[employer] to avoid corticosteroid injections unless absolutely necessary. I think in patient's case, we should hold off, although would like an injection today. I think that given his other predisposing conditions that any potential risky procedure should be withheld until we passed the peak of the curve from our COVID-19 concerns. PQRS is negative for osteoarthritis. He remains obese at 36.7, blood pressure 137/84, heart rate 107, respirations 16, O2 sat 94. Pain intensity is 8. He is not at a fall risk. He is on no blood thinners, but is treated for hypertension. He is on an opioid agreement signed through our clinic. He has a low risk for addiction scoring 0 on the ORT. He denies use of tobacco, although has a former tobacco history and is drinking alcohol socially. He does not over consume. We discussed the importance of safeguarding all medications. I have agreed to renew hydrocodone for him. His breathing is easy today, but has pain obvious with movements. When he moves from sitting to standing position or walks, he has marked antalgic features. Tenderness across the lumbosacral segment. [facility] [address] [place] [address] PAIN MANAGEMENT CONSULTATION Name: KEON COLIN Room #: [facility]#: [id number] Admission: 10/25/19 Attend Phys: Jayson Rubio MD Discharge: Date of : 57 Report #: [id number] IMPRESSION: Chronic intractable low back pain secondary to multiple level spinal stenosis. He has responded beautifully to epidural injections in the past, which has been opioid limiting. For now, I am going to send him medicine and hope that we can get through this infection, as soon as possible that he can return for an epidural injection, we feel it safer. Medications were sent electronically. By: [id number] MD blue Willard
[2019-10-25 12:58] VITALS: BP 137/84
--- NOTE | 2019-10-25 13:26 | NUR ---
Pain Clinic Assessment: 1. History of Osteoarthritis: Not Applicable History of Rheumatoid Arthritis: Not Applicable 2. Height: 5 ft. 10 in. 177.8 cm. Weight: 255.6 lb. oz. 115.940 kg. Patient's BMI: 36.7 3. Vital Signs: BP: 137/84 Pulse: 107 Resp: 16 Temp: 02 Sat: 94 ECG Mon: 4. Pain Intensity: 8 5. Fall Risk: Dizziness: N Needs help standing or walking: N Fallen in the last 3 months: N Fall risk comments: 6. Patient on Blood Thinner: None 7. History of Hypertension: Y 8. Opioid Therapy greater than 6 weeks: Y Opiate Contract Signed: 03/27/16 9. Risk Assessment Tool Provided: LOW RISK-0 10. Functional Assessment Tool: 43/ 11. Recreational Drug Use: Never Drug Type: Tobacco Use: Former Smoker Tobacco Type: Amount or Packs/day: How Many Years: Alcohol Use: Yes Frequency: Special Occasions Quant:
== END ==
LOC: PAIN 06:42
DX: M54.5 Low back pain (principal); M54.10 Radiculopathy, site unspecified; F11.20 Opioid dependence, uncomplicated; M48.00 Spinal stenosis, site unspecified; Z79.899 Other long term (current) drug therapy

== ENCOUNTER → 2019-11-29 | Outpatient (CLI) | payer BC, OTHER ==
[~2019-11-29] VITALS: Ht 177.8 cm; Wt 117.9 kg
[~2019-11-29] MED LIST changes: +ASPIR-TRIN325 MG PO
[2019-11-29 08:58] VITALS: BP 130/83
--- NOTE | 2019-11-29 09:02 | NUR ---
Pain Clinic Assessment: 1. History of Osteoarthritis: Not Applicable History of Rheumatoid Arthritis: Not Applicable 2. Height: 5 ft. 10 in. 177.8 cm. Weight: 260.0 lb. oz. 117.936 kg. Patient's BMI: 37.3 3. Vital Signs: BP: 130/83 Pulse: 104 Resp: 16 Temp: 02 Sat: 94 ECG Mon: 4. Pain Intensity: 8 5. Fall Risk: Dizziness: N Needs help standing or walking: N Fallen in the last 3 months: N Fall risk comments: 6. Patient on Blood Thinner: None 7. History of Hypertension: Y 8. Opioid Therapy greater than 6 weeks: Y Opiate Contract Signed: 03/27/16 9. Risk Assessment Tool Provided: LOW RISK-0 10. Functional Assessment Tool: 43 11. Recreational Drug Use: Never Drug Type: Tobacco Use: Former Smoker Tobacco Type: Amount or Packs/day: How Many Years: Alcohol Use: Yes Frequency: Special Occasions Quant: 1
--- NOTE | 2019-11-30 18:18 | HPC ---
[facility] [place] [address] [place] [address] PAIN MANAGEMENT CONSULTATION Name: KEON COLIN Room #: REG [facility].#: [id number] Admission: 11/29/19 Attend Phys: Jayson Rubio MD Discharge: Date of : 57 Report #: [id number] THIS REPORT FOR: cc: Ed Armendariz MD,Ed Rubio,Jayson Reno MD ~ CC: Ed Rubio DATE OF SERVICE: 11/29/2019 Followup visit for chronic low back pain with radiculopathy and spinal stenosis. The patient is here today for an epidural injection. We waited last month because of the COVID-19 concerns. As we have now flattened the curve and hence decreased the likelihood of infection with social distancing, masking, careful precautions, we have agreed that we will proceed today with an epidural injection. He really needs it. He reports continuing severe pain that is limiting his day-to-day activities. His pain score high at an 8/10. There have been no significant changes in his PQRS review since his last visit a little over 1 month ago. He has fairly marked spinal stenosis, although it has been a number of years since we did an MRI. It was moderate when we last looked and that was in 2008. His symptoms are consistent with an L5-S1 radiculopathy. We did discuss the possibility of repeating the MRI in the near future. He might be a candidate for a less invasive procedure such as MILD. On previous injections, I have noted that injections at L4-L5 oftentimes result in anterior spread of dye. This occurs often when the stenosis is tight. We were right at the stenotic level. Pain today is described as sharp, stabbing and shooting, worse with all standing, lifting, walking. It radiates into both buttocks, into both legs. Pain is fairly intense. Medications were reviewed and reconciled. There are no changes. He is on no blood thinners. PHYSICAL EXAMINATION: Blood pressure 130/83, heart rate 104, respirations 16, O2 sat 100, BMI is 37.3. He moves with an antalgic gait. Straight leg raising is bilaterally positive and causing some achiness down both legs in a nondermatomal distribution. IMPRESSION: Lumbar radiculopathy secondary to spinal stenosis. [facility] [address] [place] [address] PAIN MANAGEMENT CONSULTATION Name: KEON COLIN Bruce [id number] Admission: 11/29/19 Attend Phys: Jayson Rubio MD Discharge: Date of : 57 Report #: [id number] RECOMMENDATIONS: 1. Consider MRI in the near future. 2. Repeat epidural injection L4-L5 under fluoroscopic guidance. PROCEDURE: After informed consent, he was taken to the fluoroscopic suite, placed prone, skin prepped with ChloraPrep. Skin anesthetized on the first attempt in the epidural space with loss of resistance technique. There was no blood nor CSF aspirated. A 0.25 mL of Omnipaque again injected spreading immediately into the anterior epidural space. This appears as though the subdural, but not on a subarachnoid injection. It does not have elements of a subarachnoid injection and again repeated attempts to aspirate fluid were negative. I discussed with the patient and we will go ahead and inject. I have 0.5% lidocaine 3 mL and 60 mg of triamcinolone. It was injected and he was taken to recovery room for observation. As expected, he had a bit more motor block following this injection than normal with the anterior spread. He was observed in recovery room for about 45 minutes then discharged with good stability and able to ambulate without difficulty. There was no pain. Followup visit is planned in the pain clinic on an as needed basis. I renewed his medications for him including hydrocodone 10/325, #60 tablets 1 tablet taken b.i.d. His MME is 20. <ELECTRONICALLY SIGNED> By: Jayson Rubio MD 11/30/19 [id number] Jayson Rubio MD /nt
== END | disposition home or self-care (01) ==
LOC: PAIN 06:50
DX: M54.16 Radiculopathy, lumbar region (principal); M48.061 Spinal stenosis, lumbar region without neurogenic claudication; G89.29 Other chronic pain; E11.9 Type 2 diabetes mellitus without complications; J44.9 Chronic obstructive pulmonary disease, unspecified; I25.10 Atherosclerotic heart disease of native coronary artery without angina pectoris; Z98.890 Other specified postprocedural states; Z79.899 Other long term (current) drug therapy; Z87.891 Personal history of nicotine dependence; Z79.82 Long term (current) use of aspirin